=== PATIENT | male | born 1975 | race Caucasian/White ===

== ENCOUNTER 2017-01-20 21:59 | Emergency (ER) | payer BC ==
--- NOTE | 2017-01-21 01:24 | ER Document Report ---
ED General - General Chief Complaint: Eye Problem Stated Complaint: VISUAL DISTURBANCE Notes: Patient is a 41-year-old male who presents with complaint of a 20 minute episode where he had a bright light type effect in his left lateral upper quadrant visual field. He says the last proximal be 20 minutes. He had no associated pain. He had no darkness in his visual field. No loss of vision. He's never had this happen before. He denies being on bright lights. He denies being around chemicals except abdomen soft. QRS liter he was eating dinner with his and his noticed that his left pupil was approximately 50%. In his right pupil. His pupils have since become equal. He denies any associated headaches. No pain in the eye. He says he had no other associated symptoms whatsoever other than the bright light. No recent trauma. TRAVEL OUTSIDE OF THE [place] IN LAST 30 DAYS: No - Related Data Allergies/Adverse Reactions: No Known Allergies Allergy (Unverified 01/20/17 22:14) Past Medical History - Social History Smoking Status: Never Smoker Chew tobacco use (# tins/day): No Frequency of alcohol use: Occasional Drug Abuse: None Family History: Reviewed & Not Pertinent Patient has suicidal ideation: No Patient has homicidal ideation: No Renal/ Medical History: Denies: Hx Peritoneal Dialysis Review of Systems - Review of Systems Notes: My Normal Review Basic REVIEW OF SYSTEMS: CONSTITUTIONAL : Denies fever, chills, or sweats. Denies recent illness. EENT: Bright light affect and left lateral upper quadrant visual field which has since resolved. RESPIRATORY: Denies cough, cold, or chest congestion. Denies shortness of breath, difficulty breathing, or wheezing. GASTROINTESTINAL: Denies abdominal pain. Denies nausea, vomiting, or diarrhea. Denies constipation. Last BM: MUSCULOSKELETAL: Denies neck or back pain or joint pain or swelling. SKIN: Denies rash or skin lesions. NEUROLOGICAL: Denies altered mental status or loss of consciousness. Denies headache. Denies weakness or paralysis or loss of use of either side. Denies problems with gait or speech. Denies sensory or motor loss. ALL OTHER SYSTEMS REVIEWED AND NEGATIVE. Physical Exam - Vital signs Vitals: Temp Pulse Resp BP Pulse Ox 98.1 F 90 18 154/89 H 99 01/20/17 22:08 01/20/17 22:08 01/20/17 22:08 01/20/17 22:08 01/20/17 22:08 - Notes Notes: General Appearance: Well nourished, alert, cooperative, no acute distress, no obvious discomfort. Well-appearing. Vitals: reviewed, See vital signs table. Head: no swelling or tenderness to the head Eyes: PERRL, EOMI, Conjuctiva clear. Normal funduscopic exam of left eye. Bedside ultrasound of left eye shows no evidence of retinal detachment. Mouth: No decreasd moisture Neck: Supple, no neck tenderness, No thyromegaly Lungs: No wheezing, No rales, No rhonci, No accessory muscle use, good air exchange bilaterally. Heart: Normal rate, Regular rythm, No murmur, no rub Extremities: strength 5/5 in all extremities Skin: warm, dry, appropriate color, no rash Neuro: speech clear, oriented x 3, normal affect, responds appropriately to questions. Cranial nerves II through XII are intact. Distal sensation intact. Patient moves all extremities without difficulty. Normal gait. Normal coordination. Course - Vital Signs Vital signs: Temp Pulse Resp BP Pulse Ox 98.1 F 90 18 154/89 H 99 01/20/17 22:08 01/20/17 22:08 01/20/17 22:08 01/20/17 22:08 01/20/17 22:08 - Transfer of Care Notes: 01/21/17 02:48 I did speak with Dr. Colon, shoe ironer covering at [facility], and reviewed the patient's symptoms with him. He says it's most likely an atypical migraine. He says TIA would be low in the differential diagnosis. He says being that the patient's completely asymptomatic he can most likely go home but must have strict cautions to return to ER immediately if has any recurrence of his symptoms. Recommend follow-up with an shoe ironer on Monday for close reevaluation. Patient is completely asymptomatic this time. I did explain the plan to the patient and he is agreeable to it. Dictation of this chart was performed using voice recognition software; therefore, there may be some unintended grammatical errors. Discharge - Discharge Clinical Impression: Visual disturbance Condition: Good Disposition: HOME, SELF-CARE Additional Instructions: Please return to ER immediately if you have a headache, change in her vision, any weakness or numbness in her arms or legs, any drooping of her face, or any new symptoms. Please call the shoe ironer Jimmy morning to make close follow-up appointment. Please inform them that you were seen in the ER and referred for reevaluation of your eye. Referrals: ADITHYA GALVAN DO [ACTIVE STAFF] - 01/23/17 JEANNE ENRIQUE MD [ACTIVE STAFF] - 01/23/17
[2017-01-21 03:02] VITALS: BP 133/72
== END 2017-01-21 03:01 | disposition home or self-care (01) ==
LOC: ER 21:59
DX: H53.9 Unspecified visual disturbance (principal)
CPT/HCPCS: 70450; 99284